=== PATIENT | female | born 1965 | race Caucasian/White ===

== ENCOUNTER 2017-03-22 18:59 | Inpatient (IN) | payer OTHER ==
[~2017-03-22] VITALS: Ht 167.6 cm; Wt 57.6 kg
[~2017-03-22 18:59] MED LIST: SERT20OR PO
[2017-03-22 19:07] VITALS: BP 119/70; PULSE 104; RESP 20; O2SAT 99
[2017-03-22] MEDS ORDERED: 0.9% Sodium Chloride 1,000 ML IV ONE (19:36)
--- NOTE | 2017-03-22 19:58 | ED.REPORT ---
HPI-General Illness Date of Service Mar 22, 2017 ED Provider: Pattie Kidd MD The pt is a 51 y/o female w/ a hx of depression presenting to the ED complaining of a fever onset 5 days ago. The pt is also experiencing diaphoresis , chills, myalgia, dizziness, fatigue, diarrhea, nausea, and a lack of appetite. Her symptoms have caused her to remain in bed for the last 5 days. She feels much better when she is lying down as compared to when she is moving around. She has been drinking increased fluids due to her diaphoresis. 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 The pt has also had a slight non-productive cough which she was experiencing before the symptoms began 5 days ago. Nursing Notes Stated Complaint: FEVER, SWEATS, POSSIBLE HANTA VIRUS Chief Complaint: FLU/Cold Symptoms Nursing Notes Reviewed: Yes Allergies: Coded Allergies: Sulfa (Sulfonamide Antibiotics) (Verified Allergy, Severe, Hives, 01/13/15) Penicillins (Verified Allergy, Intermediate, Rash, 03/22/17) STATES AMOXICILLIN BUT UNSURE Scheduled Sertraline HCl (Sertraline) 20 Mg/1 Ml Oral.conc 100 MG PO QAM Scheduled PRN Trazodone (Trazodone) 50 Mg Tablet 50 MG PO HS PRN PRN Insomnia General Time Seen by MD: 19:34 Chief Complaint Fever Hx Obtained From: Patient Arrived By: Walk-in Sudden in Onset?: Yes Onset Occurred: 5 days ago Symptom Duration: Since onset Recent Healthcare: No recent doctor visit, No recent hospitalization Similar Sx Previous: No Past Medical History Past Medical History Depression Past Surgical History None Smoking History Never Smoker Social History Alcohol Use: "Social" Drug Use: Denies drug use Ambulatory Status Independent Review of Systems Lack of appetite Full Review of Systems Constitutional: Reports: Chills, Fatigue, Fever Respiratory: Reports: Non-productive cough GI: Reports: Diarrhea, Nausea Musculoskeletal: Reports: Myalgia Skin: Reports Diaphoresis Neurologic: Reports: Dizziness Complete sys rev & neg: except as marked. Physical Exam Vital Signs Vital Signs Date Time Temp Pulse Resp B/P Pulse Ox O2 Delivery O2 Flow Rate FiO2 03/22/17 21:03 36.9 87 14 117/67 96 Room Air 03/22/17 19:07 37.1 104 20 119/70 99 Room Air Initial VS: Reviewed General/Constitutional: Awake, Alert Head / Eyes: Normocephalic, No photophobia Slightly flushed face ENT: Atraumatic, Airway patent Neck: Atraumatic, Full range of motion Respiratory / Chest: Breath sounds = bilat, No respiratory distress Fine crackles through lower and middle lung romeo bilaterally Cardiovascular: Heart rate NL, Regular rhythm, Heart sounds NL Abdomen: Atraumatic, Soft, Non-tender Back: Atraumatic, Full range of motion Skin: No rash, Warm, Dry Neurologic: Oriented X3, Speech NL Psychiatric: Affect NL, Mood NL Interpretation & Diagnostics Lab Results Interpretation Result Diagram: 03/22/17195403/22/171954 Test 03/22/17 19:55 03/22/17 21:45 White Blood Count 6.6th/mm3 (3.8-10.1) Red Blood Count 5.11mil/mm3 (3.90-5.20) Hemoglobin 15.7g/dL (12.0-15.6) Hematocrit 43.6% (35.0-46.0) Mean Corpuscular Volume 85.3fL (81-100) Mean Corpuscular Hemoglobin 30.7pg (27.0-35.0) Mean Corpuscular Hemoglobin Concent 36.0% (32.0-37.0) Red Cell Distribution Width 12.4% (12.3-15.4) Platelet Count 50bil/L (150-400) Neutrophils (%) (Auto) 73.1% (40-74) Lymphocytes (%) (Auto) 11.5% (14-46) Monocytes (%) (Auto) 12.8% (4-12) Eosinophils (%) (Auto) 0.9% (0-5) Basophils (%) (Auto) 0.9% (0-3) Sodium Level 127mEq/L (134-144) Potassium Level 4.0mEq/L (3.5-5.2) Chloride Level 91mEq/L (97-108) Carbon Dioxide Level 19mmol/L (18-29) Blood Urea Nitrogen 14mg/dL (6-24) Creatinine 0.52mg/dL (0.57-1.00) Estimat Glomerular Filtration Rate 177mL/min (>59) Glucose Level 131mg/dL (60-99) Lactic Acid Level 0.2mmol/L (0.4-2.0) Calcium Level 8.3mg/dL (8.5-10.1) Total Bilirubin 0.4mg/dL (0.0-1.2) Aspartate Amino Transf (AST/SGOT) 88U/L (0-50) Alanine Aminotransferase (ALT/SGPT) 49U/L (0-32) Alkaline Phosphatase 43U/L (25-150) Lactate Dehydrogenase 490U/L (100-190) Troponin T < 0.010ug/L (0.0-0.011) Total Protein 5.7g/dL (6.4-8.4) Albumin 3.2g/dL (3.4-5.0) Procalcitonin 0.57ng/mL (0.00-0.08) X-Ray Chest Interpretation Chest Xray Interpretation: IMPRESSION: 1. New bilateral reticular interstitial opacities suspicious for atypical infection given the history. However, the differential also includes inflammatory interstitial lung diseases or inhalational exposures among other etiologies. Recommend correlation clinically and if indicated further evaluation may be obtained with a high-resolution CT. Dictated by: Abisai Wong M.D. on 03/22/2017 at 20:04 Approved by: Abisai Wong M.D. 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 She works in extremely remote places multiple areas in [facility] significant exposure to deer mice in dry [place] and other areas where she is certainly exposed to all sorts of bacterial pathogens. About a month ago she was working in a barn with quite a bit of pigeon feces. Despite all attempts at respiratory isolation and respirator use exposure is a significant concern. Not only is her clinical presentation consistent with hantavirus, significant exposure all consistent with this then lab work is also suggestive with thrombocytopenia and elevated lactate dehydrogenase mildly elevated transaminases hyponatremia. Clinically she looks ill she is flushed but awake alert able to speak in full sentences cognitively aware she is minimally tachycardic blood pressure is stable and not decreasing. minimally febrile in response to Tylenol. Phone call to Dr. Wise, agrees with concerns over hantavirus. Does recommend empiric doxycycline as well as ceftriaxone. Respiratory PCR viral testing has been done and is negative for all of our standard testing. Hantavirus titers have been drawn. She will be admitted to the PCU currently stable however concerns for clinical deterioration are significant. Source of Hx: Old records Time of Eval: 21:46 Re-Evaluation/Progress Note: Pt rechecked. Informed pt of need for admission. Pt understands and agrees with plan for admission. All questions addressed. Consultation #1: Referral / Consult Name: Domingo Wise MD Call Returned at: 21:28 Note: Recommends admission and antibiotics Consultation #2: Referral / Consult Name: Carin Underwood DO Consulted With: Hospitalist Call Returned at: 21:37 Risk And Insurance Manager: Will see patient, Agrees with eval, Agrees with plan, Accepts admit Counseled Regarding: Diagnosis, Lab results, Need for admission Discharge & Departure Primary Impression: Interstitial pneumonia Additional Impression: Hyponatremia Disposition: ADMITTED TO HOSPITAL Discharge Condition All VS Reviewed: Yes Condition: Stable Referrals: Butch Townsend MD (PCP) Crit Care Except Billable Proc Time Spent: 30-74 minutes Services Performed: Patient management by me, Time spent at bedside, Reviewing test results, Reviewing imaging, Discussing patient care, Documentation in record, Time with fam/surrogate Scribe Attestation Portions of this note were transcribed by Juan F Baum. I, Dr. Kidd personally performed the history, physical exam and medical decision-making; I reviewed and confirmed the accuracy of the information in the transcribed note. Signed by : Valorie Borrero, 03/22/17 and 2133. copies to: Butch Townsend MD, Shawna L MD Mar 22, 2017 19:58 Juan F Baum Mar 22, 2017 20:31
--- NOTE | 2017-03-22 20:07 | DRSVH ---
PROCEDURE: X-RAY CHEST, TWO VIEWS ([id number]) INDICATIONS: fever, cough TECHNIQUE: 2 views of the chest were acquired. COMPARISON: None. FINDINGS: Surgical changes and devices: None. Lungs and pleura: No pleural effusions or pneumothorax. There are new diffuse bilateral reticular i nterstitial opacities with a basilar predominance. No focal consolidation. Mediastinum: Mediastinal contours are normal. Heart size is normal. Bones and chest wall: No suspicious bony abnormalities. Soft tissues appear unremarkable. IMPRESSION: 1. New bilateral reticular interstitial opacities suspicious for atypical infection given the histor y. However, the differential also includes inflammatory interstitial lung diseases or inhalational e xposures among other etiologies. Recommend correlation clinically and if indicated further evaluatio n may be obtained with a high-resolution CT. Dictated by: Abisai Wong M.D. on 03/22/2017 at 20:04 Approved by: Abisai Wong M.D. on 03/22/2017 at 20:05
[2017-03-22 20:32] LABS: BASOPHILS % (AUTO) 0.9 % (0-3); EOSINOPHILS % (AUTO) 0.9 % (0-5); MONOCYTES % (AUTO) 12.8 % (4-12); Mean Corpuscular Hemoglobin 30.7 pg (27.0-35.0); Mean Corpuscular Volume 85.3 fL (81-100); NEUTROPHILS % (AUTO) 73.1 % (40-74); Platelet Count 50 bil/L (150-400)
[2017-03-22 21:03] VITALS: BP 117/67; PULSE 87; RESP 14; O2SAT 96
[2017-03-22 21:13] LABS: TROPONIN T < 0.010 ug/L (0.0-0.011)
[2017-03-22] MEDS ORDERED: cefTRIAXone Inj 2,000 MG in Dextrose 5% Minibag Plus 50 ML IV ONE (21:30)
[2017-03-22] MEDS ORDERED: SERT20OR6 PO (22:36)
[2017-03-22] MEDS ORDERED: TRAZ-115 PO (22:36)
[2017-03-22] MEDS ORDERED: HYDROcodone-APAP 5-325 mg Tablet PO PRN (22:55)
[2017-03-22] MEDS ORDERED: Polyethylene Glycol (PEG) 17 Gm Powder PO PRN (22:55)
[2017-03-22] MEDS ORDERED: Alum-Mag Hydrox-Simeth 30 mL Suspension PO PRN (22:55)
[2017-03-22] MEDS ORDERED: Ondansetron 2 mg/mL 2 mL Inj IVPUSH PRN (22:55)
--- NOTE | 2017-03-22 23:07 | PCM.HPMED ---
Subjective Date of Service Mar 22, 2017 Primary Provider: Admitting Physician: Carin Underwood DO Primary Care Physician: Dora Starks MD Attending Physician: Carin Underwood DO Admit Status: From the Emergency Department Chief Complaint: Fatigue History of Present Illness: This is a 51-year-old female who presents today with profound fatigue, chills, and loss of appetite. The patient states that she usually lives a very active lifestyle. 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 Approximately 3 weeks ago she remembers cleaning out a large structure with pigeon feces and deer mouse feces and after this developed a cough. Approximately 5 days ago she began to have profound fatigue. She was driving home from [facility] and had to stop her car several times because of the fatigue and due to the fatigue has been laying in bed since the onset. Over the last several days she has developed diffuse muscle aches, chills, nausea without vomiting, and loss of appetite. 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 Today, the patient has a cough that is productive although she cannot describe the sputum. She also has developed loose bowel movements over the last 24 hours that she describes as soft and sometimes liquid and without blood. 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 She denies any shortness of breath , nasal congestion, abdominal pain, hematochezia, melena, headaches, visual changes, dysuria, hematuria, increased urinary frequency.. In the emergency department initial vital signs were temperature 37.1c, pulse 104, respiratory rate 20, blood pressure 119/70, satting at 99% on room air. Initial lab values were WBC 6.6, hemoglobin 15.7, hematocrit 43.6, platelet count of 50. Sodium 127, potassium 4.0, chloride 91, BUN 14, creatinine 0.52, glucose 131, calcium 8.3 with albumin 3.2, AST 88, ALT 49, lactate dehydrogenase 490, troponin less than 0.010. Lactic acid 0.2, pro calcitonin 0.57. She has a negative PCR viral panel. Chest x-ray showed "new bilateral reticular interstitial opacity suspicious for atypical infection given the history. However the differential also includes inflammatory interstitial lung disease or inhalational exposure among other etiologies. Recommend correlation clinically and if indicated further evaluation may be obtained with a high- resolution CT." The emergency room physician contacted Dr. Wise of infectious disease who asked the patient to be placed on doxycycline and ceftriaxone. The patient also received 2 boluses of normal saline while in the ED. Review of Systems: A comprehensive review of systems was conducted with the patient and found to be negative except as above in the History of Present Illness. 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 CT scan of the chest on 04/19/2016 showed no concerning abnormalities Surgical History Left ankle surgery. Family History Mother of peritoneal cancer in 50s. Father of lung cancer in his 50s. He was never a smoker. Sister is healthy. Social History Hx Alcohol Use: No Hx Substance Use: No Smoking Status: Never Smoker Additional Information Patient has travel history significant for [facility], [place], and [place] in 2013. She has lived in multiple states throughout her life including [place], [place], [place]. 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 She has no known tortuous exposure. Exam Vital Signs Vital Sign - Last Date Time Temp Pulse Resp B/P Pulse Ox O2 Delivery O2 Flow Rate FiO2 03/22/17 22:09 36.9 72 16 127/70 98 Room Air Exam General: No acute distress, well-developed, well-nourished, appropriately interactive HEENT: Normocephalic, atraumatic. External ears without defect. Pupils equal, round, and reactive to light and accommodation. Anicteric sclerae, moist conjunctivae, and no lid lag. Oropharynx free of erythema and cobble stoning with dry mucosa. Neck: Supple with full range of motion. No jugular venous distension. No bruits. Lymphadenopathy in left submandibular region. No thyromegaly. Cardiovascular: Regular rate and rhythm with no murmurs, rubs, or gallops appreciated Pulmonary: Crackles present at base of lungs bilaterally, no wheezes or rhonchi. Normal respiratory effort with no use of accessory muscles. Abdomen: Bowel tones present. Soft, nontender, nondistended. No hepatosplenomegaly or masses appreciated. Extremities: No clubbing, cyanosis, edema, or lymphadenopathy appreciated. Skin: Normal temperature, turgor, and texture; no rash, ulcers, or subcutaneous nodules appreciated. Neurological: Cranial nerves grossly intact. Normal muscle strength, tone, and bulk. Reflexes, coordination, and sensory function within normal limits. No known gait impairment. Psychiatric: Normal mood and affect. Alert and oriented to person, place, and time. Lab and Diagnostics Result Diagram: 03/22/17195403/22/171954 X-Rays, CTs and MRIs Chest x-ray on 03/22/2017: IMPRESSION: 1. New bilateral reticular interstitial opacities suspicious for atypical infection given the history. However, the differential also includes inflammatory interstitial lung diseases or inhalational exposures among other etiologies. Recommend correlation clinically and if indicated further evaluation may be obtained with a high-resolution CT. Dictated by: Abisai Wong M.D. on 03/22/2017 at 20:04 Assessment & Plan This is a usually very active and healthy 51-year-old female who presents with chills, nausea, diarrhea, and profound fatigue of 5 days duration. 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 She has a negative PCR viral panel, WBC of 6.6 with a relatively normal differential, thrombocytopenia, hyponatremia, as well as elevated transaminases and lactate dehydrogenase. Her pro calcitonin was 0.57. Chest x-ray showed new bilateral reticular interstitial opacities suspicious for atypical infection. I suspect this is of infectious origin. The differential is broad and includes gastroenteritis, atypical pneumonia, inhalational exposure, inflammatory interstitial lung disease, malignancy. The patient herself is worried about Hanta virus and this is not unreasonable due to exposures. Hanta virus antibodies are pending. Bilateral interstitial opacities, present on admission, ongoing: -Chest x-ray: bilateral reticular interstitial opacities. Procalcitonin .57. Lung exam significant for crackles. Exposure to multiple types of animal feces. -This likely represents atypical pneumonia. -PCR viral panel negative. -Hanta virus antibodies pending. -Blood cultures, sputum cultures, legionella ag, strep pneumo ag, cryptococcal ag, HIV -Dr. Wise of infectious disease was consulted over the phone by the ED physician and asked about antibiotic choices and he recommended doxycycline and ceftriaxone based on history he received. -Continue Ceftriaxone and doxycycline. Fatigue, present on admission, ongoing: -Likely secondary to infectious cause such as atypical pneumonia. -NS at 60 ml/hr. Acute diarrhea, present on admission, ongoing: -Several episodes of diarrhea over last 24 hours without blood. Recently was drinking out of well with what appeared to be contaminated water with red residue. -PCR stool panel pending. Thrombocytosis, present on admission, ongoing: -Platelets on admission 50. -Likely secondary to acute viral or bacterial infection. -Differential includes neoplasm, chronic infection. Hypovolemic hyponatremia, present on admission, ongoing: -Sodium 127 on admit. Decreased fluid intake due to nausea. -NS at 60ml/hr. Elevated glucose, present on admission, ongoing: -On admit glucose is 131. -A1c ordered. Elevated transaminases, present on admission, ongoing: AST 88, ALT 49. Lactate dehydrogenase on admit 490. Differential includes: infectious including hepatitis, toxin, alcoholism (she denies drinking), thyroid disorders, malignancy. -Consider ultrasound of abdomen in morning. -Hepatitis panel pending. SCD"s for DVT prophylaxis. Patient is admitted under inpatient status with expected length of stay greater than 2 midnights due to severity of presenting symptoms, risk of adverse event, and complexity of treatment plan. Pain Evaluation: Adequate Pain Control Resuscitation Status: CPR: Attempt Resuscitation Attending Statement The patient was seen and examined together with house staff on 03/23/2017 and I agree with the history, exam and plan as outlined in the note above. Cecil Zavaleta DO Mar 22, 2017 23:07 Carin Underwood DO Mar 23, 2017 04:58
[2017-03-22 23:28] VITALS: BP 122/74; PULSE 76; RESP 16; O2SAT 96
[2017-03-23] VITALS (8 sets, daily range): BP systolic 103–118; BP diastolic 55–68; PULSE 73–110; RESP 15–20; O2SAT 90–100
[2017-03-23] MEDS: 0.9% Sodium Chloride 1,000 ML IV SCH ×2 (00:38→16:49)
[2017-03-23 01:00] LABS: APPEARANCE,URINE CLEAR (CLEAR,HAZY); COLOR,URINE YELLOW (YELLOW)
[2017-03-23 01:01] LABS: OCCULT BLOOD,URINE TRACE (NEGATIVE); UROBILINOGEN,URINE NORMAL (NORMAL)
--- NOTE | 2017-03-23 01:43 | NUR ---
Admit Patient admitted to [facility] 2005 at 2325. Admit documentation and med rec completed. Patient expressed anxiety about going to sleep; worries that she may have a breathing problem and not wake up. Reassured patient that she would be monitored and provided patient with a continuous pulse ox for peace of mind. Patient expressed satisfaction with this arrangement and is going to sleep.
[2017-03-23 02:50] LABS: BASOPHILS % (AUTO) 0.8 % (0-3); EOSINOPHILS % (AUTO) 1.3 % (0-5); MONOCYTES % (AUTO) 12.4 % (4-12); Mean Corpuscular Hemoglobin 30.7 pg (27.0-35.0); Mean Corpuscular Volume 86.1 fL (81-100); NEUTROPHILS % (AUTO) 68.8 % (40-74); Platelet Count 41 bil/L (150-400)
[2017-03-23 03:33] LABS: ERYTHROCYTE SEDIMENTATION RATE 2 mm/hr (0-40)
--- NOTE | 2017-03-23 06:10 | NUR ---
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 Patient was offered medication for nausea but refused, stating that she would rather sip water. Patient states that if she has any further episodes of emesis she will consider medication.
--- NOTE | 2017-03-23 09:08 | PCM.PNMED ---
Subjective Date of Service Mar 23, 2017 Subjective She is doing better today. She has a dry cough. Minimal dyspnea. Some dyspnea exertion. Her fatigue is much better after fluid repletion. No nausea , fevers, chills, or rolling myalgias. No diarrhea. No organomegaly events Exam Vital Signs Vital Sign - Last Date Time Temp Pulse Resp B/P Pulse Ox O2 Delivery O2 Flow Rate FiO2 03/23/17 07:55 37.2 110 20 103/62 90 Room Air Intake and Output 03/22/17 03/22/17 03/23/17 Cumulative From/Thru 15:00 23:00 07:00 03/22/17 19:07 - 03/23/17 04:54 Intake Total 1000 ml 0 ml 1000 ml Output Total 700 ml 700 ml Balance 1000 ml -700 ml 300 ml Intake Oral 0 ml 0 ml IV Total 1000 ml 1000 ml Output Urine Total 700 ml 700 ml # Bowel Movements 0 0 Exam Alert and oriented -3, no distress. Fluent speech Anicteric sclera. Lungs are clear with normal rate and effort, diffuse mild rales. Heart is regular without murmur gallop or rub Abdomen soft nontender, flat Extremities are free of edema. Skin is free of rash or lesions., No petechiae IVs and Medications Medications Reviewed: Medications were reviewed in detail Lab and Diagnostics Result Diagram: 03/23/1722403/23/17224 X-Rays, CTs and MRIs Chest x-ray on 03/22/2017: IMPRESSION: 1. New bilateral reticular interstitial opacities suspicious for atypical infection given the history. However, the differential also includes inflammatory interstitial lung diseases or inhalational exposures among other etiologies. Recommend correlation clinically and if indicated further evaluation may be obtained with a high-resolution CT. Dictated by: Abisai Wong M.D. on 03/22/2017 at 20:04 Assessment & Plan This is a usually very active and healthy 51-year-old female who presents with chills, nausea, diarrhea, and profound fatigue of 5 days duration. 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 She has a negative PCR viral panel, WBC of 6.6 with a relatively normal differential, thrombocytopenia, hyponatremia, as well as elevated transaminases and lactate dehydrogenase. Her pro calcitonin was 0.57. Chest x-ray showed new bilateral reticular interstitial opacities suspicious for atypical infection. I suspect this is of infectious origin. The differential is broad and includes gastroenteritis, atypical pneumonia, inhalational exposure, inflammatory interstitial lung disease, malignancy. The patient herself is worried about Hanta virus and this is not unreasonable due to exposures. Hanta virus antibodies are pending. Pneumonia, improving -Chest x-ray: bilateral reticular interstitial opacities. Procalcitonin .57. Lung exam significant for crackles. Exposure to multiple types of animal feces. -This likely represents atypical pneumonia. -PCR viral panel negative. -Hanta virus antibodies pending. -Blood cultures, sputum cultures, legionella ag, strep pneumo ag, cryptococcal ag, HIV -Dr. Wise of infectious disease was consulted over the phone by the ED physician and asked about antibiotic choices and he recommended doxycycline and ceftriaxone based on history he received. -Continue Ceftriaxone and doxycycline. The patient has a differential that includes tickborne disease (HGA). She has no evidence of shock or profound hypoxia. No evidence of bleeding. This point we will continue her current treatment. Serologies are sent and pending. Volume depletion, present on admission, improving: -Likely secondary to infectious cause such as atypical pneumonia. -NS at 60 ml/hr. this will be continued Acute diarrhea, present on admission, resolved: -Several episodes of diarrhea over last 24 hours without blood. Recently was drinking out of well with what appeared to be contaminated water with red residue. -PCR stool panel pending. Thrombocytopenia, present on admission, ongoing: -Platelets on admission 50. -Likely secondary to acute viral or bacterial infection. -Differential includes neoplasm, chronic infection, will follow clinically.. Hypovolemic hyponatremia, present on admission, ongoin improving -Sodium 127 on admit. Decreased fluid intake due to nausea. -NS at 60ml/hr. Elevated glucose, present on admission, ongoing: -On admit glucose is 131. -A1c ordered. Elevated transaminases, present on admission, ongoing: Very likely related to her primary infection. AST 88, ALT 49. Lactate dehydrogenase on admit 490. Differential includes: infectious including hepatitis, toxin, alcoholism (she denies drinking), thyroid disorders, malignancy. -Consider ultrasound of abdomen in morning. -Hepatitis panel pending. SCD"s for DVT prophylaxis. Patient is admitted under inpatient status with expected length of stay greater than 2 midnights due to severity of presenting symptoms, risk of adverse event, and complexity of treatment plan. Resuscitation Status: CPR: Attempt Resuscitation Hosea Brady MD Mar 23, 2017 09:08
--- NOTE | 2017-03-23 13:17 | CONS ---
[address] [address] CONSULTATION REPORT PATIENT: PATITO ANDERSON : 1965 MR#: [id number] ADMIT: 03/22/2017 JOB ID: [id number] DATE OF SERVICE: 03/23/2017 REASON FOR CONSULTATION: Fever, hypoxemia, and abnormal chest x-ray. REQUESTING CLINICIAN: Dr. [facility]. HISTORY OF ILLNESS: The patient is a normally healthy, active, 51-year-old white female, never smoker. She presented to [facility] Department on the evening of March 22, 2017, with an approximate 5-day history of fevers, rigors, chills, drenching sweats, and lethargy. Her chest x-ray was found to be abnormal and she was mildly hypoxemic. She was admitted to the hospital service and Pulmonary consultation is now requested. 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 She routinely encounters large amounts of dust and animal and rodent droppings. She and other members of the team are even supplied with a portable positive powered respirator for respiratory protection given the recognition of their significant exposures at work. 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 She sometimes is involved with removing materials that involve zeolite and asbestos. She observed large amounts of rodent waste droppings in the buildings where she was working. She developed a slight nonproductive cough and "cold" symptoms for approximately one week at the end of her time in [facility]. She returned to her home in the [place], but by that time was very fatigued on Saturday or Saturday of this week. She has been essentially bedridden since that time, experiencing rigors, chills, and drenching sweats. She has had very poor appetite. She had significant generalized arthralgias and myalgias. She had a single episode of vomiting. She denied diarrhea, abdominal pain, or jaundice. She had very poor p.o. intake. Ultimately, a neighbor convinced her to be brought to the emergency department where she was evaluated and then admitted. PAST MEDICAL HISTORY: 1. Osteoarthritis. 2. Anxiety. 3. Insomnia. OUTPATIENT MEDICATIONS: Sertraline and trazodone. DRUG ALLERGIES: 1. SULFONAMIDE causes a papular rash. 2. PENICILLIN is associated with symptoms she cannot recall. SOCIAL HISTORY: She is single, employed, a nonsmoker. Denies use of recreational drugs. FAMILY HISTORY: Father of widely metastatic melanoma. Mother of an uncharacterized perineal tumor. She has no children. REVIEW OF SYSTEMS: As above. She had mild headache but none now. She had some slight photophobia earlier in this illness but this has resolved. She denies any current ear pain, change in vision, difficulty swallowing, change in auditory acuity, lymphadenopathy, rash, or extremity swelling, PND, orthopnea, previous history of cardiac disease, jaundice, history of hepatitis or any history of kidney disease. Ten system review completed and only positive as noted. PHYSICAL EXAMINATION: This is a well-developed, well-nourished woman who appears slightly apprehensive but otherwise comfortable. She speaks in full sentences. She is currently afebrile and her O2 saturation at rest on room air ranges from 91% to 93%. HEENT exam: Head is normocephalic and atraumatic. Conjunctivae not injected. Sclerae anicteric. Gaze is conjugate. Pupils are equal at 5 mm. The oropharynx shows normal mucosa without any ulcerations or exudate. Tonsils are atrophic. The neck shows a midline trachea. Neck veins are flat. There is no mass, adenopathy or crepitus in the neck and the thyroid is not palpable. Lungs are clear to percussion with normal diaphragmatic excursion. On auscultation, she has slightly decreased air movement but no wheeze, rale or rhonchi are heard. Cardiac exam shows a regularly regular rhythm with a normal S1 and an accentuated P2 component of her 2nd heart sound. There is no gallop or murmur. Her abdomen is soft. Bowel sounds are present. There is no organomegaly, mass or bruits. Extremities: Nails are normal. No synovitis. Pulses are 2+. Lower extremities free of edema. Skin: No rash, petechiae, purpura. Lymphatic: No axillary, supraclavicular or cervical lymphadenopathy. DATABASE: Per the electronic medical record. Her chest x-ray shows some hyperinflation, normal cardiac mediastinal silhouette and diffuse reticular infiltrate involving all lung zones. Her CBC shows a hemoglobin of 14.8, hematocrit of 41.5, WBC of 6.3 with 69% neutrophils, 15% lymphocytes, 12.4 monocytes and 1.3% eosinophils. She had only 41,000 platelets. Chemistries show a sodium 132, potassium 3.8, chloride of 98, total CO2 of 22, BUN of 14, creatinine 0.5 and random glucose of 135. AST is mildly elevated at 72, and ALT is 42, alkaline phosphatase is normal. LDH is slightly elevated at 499. Procalcitonin level elevated at 0.57. IMPRESSION: Fever, hypoxemia, and pulmonary infiltrates. Her recent exposures to rodent droppings raises several possibilities. She may also have had some tick exposure given the environment she has been living in recently. The differential here is quite broad. There has already been some expressed concern about hantivirus but while she has an elevated LDH and thrombocytopenia, she has no immunoblasts seen and her clinical syndrome actually appears quite mild at this time, although she may still be in the prodromal phase. More likely than hantavirus, I am concerned about anaplasmosis or ehrlichiosis which are also tick-borne illnesses associated with deer mice. Rickettsial diseases such as Coxiella are a consideration as are spirochetal diseases such as relapsing fever. The absence of rash makes RMSF unlikely She was started empirically already on doxycycline and I would continue this for 10 days, or least three or four days after defervescence. I believe Hantavirus serologies have already been sent and to this I would add serology for anaplasmosis and Ehrlichia. RECOMMEND: 1. Continue doxycycline 100 mg IV q.12 h. 2. Serology for anaplasmosis, Ehrlichia, and possibly Coxiella 3. Peripheral smear examination for the presence of immunoblasts We will continue to follow with you but she can likely be discharged within the next 48 hours if she defervesces and has normalization of lab values with improvement in her mild hypoxemia. MAXID
[2017-03-23] MEDS: cefTRIAXone Inj 2,000 MG in Dextrose 5% Minibag Plus 50 ML IV SCH (16:52)
[2017-03-23] MEDS: Doxycycline Inj 100 MG in Dextrose 5% Minibag Plus 100 ML IV SCH (20:10)
[2017-03-24] VITALS (7 sets, daily range): BP systolic 105–108; BP diastolic 63–74; PULSE 96–109; RESP 16–20; O2SAT 91–94
--- NOTE | 2017-03-24 00:22 | NUR ---
Respiratory At midnight vitals check patient found to have SpO2 in the low 80s on room air. Prior checks had all been in the low to mid 90s on room air. Oxygen applied via oxymask titrated to 4L; patient SpO2 91-92%. FYI page to hospitalist. Continue to monitor.
[2017-03-24 02:58] LABS: Mean Corpuscular Hemoglobin 30.8 pg (27.0-35.0)
[2017-03-24] MEDS: Doxycycline Inj 100 MG in Dextrose 5% Minibag Plus 100 ML IV SCH ×2 (07:50→20:36)
--- NOTE | 2017-03-24 08:20 | PCM.PNMED ---
Subjective Date of Service Mar 24, 2017 Subjective Placed on oxygen over noc No new complaints. Had light dinner. Denies chills, rigors, sweats. Speaking in full sentences. Cough nonproductive Exam Vital Signs Vital Sign - Last Date Time Temp Pulse Resp B/P Pulse Ox O2 Delivery O2 Flow Rate FiO2 03/24/17 07:34 37.5 98 20 105/66 92 OxyMask 5.00 Intake and Output 03/23/17 03/23/17 03/24/17 Cumulative From/Thru 15:00 23:00 07:00 03/22/17 19:07 - 03/24/17 06:38 Intake Total 1300 ml 1503 ml 3803 ml Output Total 1200 ml 1900 ml Balance 100 ml 1503 ml 1903 ml Intake Oral 1300 ml 1300 ml IV Total 1503 ml 2503 ml Output Urine Total 1200 ml 1900 ml # Bowel Movements 0 Exam Tanned WDWN woman in NAD Afeb, SpO2 91-93% 5L by oxymask Lungs Good air movement, faint rales, NO wheezes, bronchial breath sounds CV RRR, no m/g/r Abd soft, normal BTs Ext no edema Lab and Diagnostics Result Diagram: 03/24/175 03/23/17 0225 X-Rays, CTs and MRIs Chest x-ray on 03/22/2017: IMPRESSION: 1. New bilateral reticular interstitial opacities suspicious for atypical infection given the history. However, the differential also includes inflammatory interstitial lung diseases or inhalational exposures among other etiologies. Recommend correlation clinically and if indicated further evaluation may be obtained with a high-resolution CT. Dictated by: Abisai Wong M.D. on 03/22/2017 at 20:04 Assessment & Plan Atypical pneumonia The development of hypoxemia requiring oxygen is concerning. She remains afebrile and there were no immunoblasts or immature forms seen on her peripheral smear and her platelet count is recovering. The differential remains broad and includes hantavirus, tularemia pneumonia, Q fever, anaplasmosis/erhrlichia, legionella ( although her urine antigen is neg) , mycoplasma, and more common respiratory viruses REC CXR today Nasal secretions for respiratory virus PCR Continue IV doxy Wean O2 as tolerates Serial CBC Resuscitation Status: CPR: Attempt Resuscitation Tre Sabillon MD Mar 24, 2017 08:20
--- NOTE | 2017-03-24 08:32 | NUR ---
Social Work Note: Screen Note Data& Assessment: EMR reviewed. Sonia Monge is a 51 year old female admitted on 03/22/2017 for insterstial pneumonia. Pt has [facility] and sees Dora Starks [facility] for primary care. Pt lives in [place] and is independent at baseline. Pt is currently requiring 4L of oxygen and IV abx. SW to continue to follow for MD orders and needs as pt medically progresses. SW to continue to follow. Plan: Anticipated discharge home when medically ready. SW to continue to follow for MD orders and needs as pt medically progresses. SW to continue to follow. AMINTA Padron
--- NOTE | 2017-03-24 09:36 | DRSVH ---
PROCEDURE: X-RAY CHEST ONE VIEW, PORTABLE ([id number]) INDICATIONS: pneumonia TECHNIQUE: One view of the chest was acquired. COMPARISON: [facility], CR, XR CHEST 2V AP/PA AND LAT, 03/22/2016, 11:05 AM. [facility], CR, CHEST 2VW, 01/03/2015, 15:25. [facility], CR, XR CHEST 2VW, 03/22/2017, 19:54. FINDINGS: Surgical changes and devices: None. Lungs and pleura: There is a new small left pleural effusion with left retrocardiac consolidation. There are reticular interstitial opacities demonstrated suggesting mild pulmonary edema versus chroni c changes. Mediastinum: Mediastinal contours appear normal. Heart size is normal. Bones and chest wall: No suspicious bony lesions. Overlying soft tissues appear unremarkable. IMPRESSION: 1. Left retrocardiac lower lobe consolidation consistent with history of pneumonia. There are also increased medial right infrahilar opacities compatible with developing consolidation or atelectasis. 2. Small left pleural effusion. 3. Increased bilateral reticular interstitial opacities suggesting mild pulmonary edema. Dictated by: Abisai Wong M.D. on 03/24/2017 at 9:26 Approved by: Abisai Wong M.D. on 03/24/2017 at 9:28
[2017-03-24] MEDS ORDERED: Furosemide 10 mg/mL 2 mL Inj IVPUSH ONE (10:40)
[2017-03-24] MEDS: 0.9% Sodium Chloride 1,000 ML IV SCH (11:27)
[2017-03-24 12:36] LABS: BASOPHILS % (AUTO) 0 % (0-3); EOSINOPHILS % (AUTO) 1 % (0-5); MONOCYTES % (AUTO) 14 % (4-12); NEUTROPHILS % (AUTO) 39 % (40-74)
[2017-03-24 13:09] LABS: Cryptococcal Ag Negative (Negative)
--- NOTE | 2017-03-24 14:22 | PCM.PNMED ---
Subjective Date of Service Mar 24, 2017 Subjective Patient is feeling fatigued today. No cough, fevers or chills. She did require more oxygen this morning. She is now on 4 L. She does note dyspnea with exertion but no dyspnea at rest while on oxygen. No nausea. No myalgias. No abdominal pain or diarrhea. No overnight events Exam Vital Signs Vital Sign - Last Date Time Temp Pulse Resp B/P Pulse Ox O2 Delivery O2 Flow Rate FiO2 03/24/17 11:26 36.9 100 16 108/74 91 OxyMask 5.00 Intake and Output 03/23/17 03/23/17 03/24/17 Cumulative From/Thru 15:00 23:00 07:00 03/22/17 19:07 - 03/24/17 06:38 Intake Total 1300 ml 1503 ml 3803 ml Output Total 1200 ml 1900 ml Balance 100 ml 1503 ml 1903 ml Intake Oral 1300 ml 1300 ml IV Total 1503 ml 2503 ml Output Urine Total 1200 ml 1900 ml # Bowel Movements 0 Exam Alert and oriented -3, no distress. Fluent speech. She is on oxygen and breathing comfortably and not tachypneic. Anicteric sclera. Lungs are clear with normal rate and effort Heart is regular without murmur gallop or rub Abdomen soft nontender, flat Extremities are free of edema. Skin is free of rash or lesions. IVs and Medications Medications Reviewed: Medications were reviewed in detail Lab and Diagnostics Result Diagram: 03/24/1722403/23/17224 X-Rays, CTs and MRIs Chest x-ray on 03/22/2017: IMPRESSION: 1. New bilateral reticular interstitial opacities suspicious for atypical infection given the history. However, the differential also includes inflammatory interstitial lung diseases or inhalational exposures among other etiologies. Recommend correlation clinically and if indicated further evaluation may be obtained with a high-resolution CT. Dictated by: Abisai Wong M.D. on 03/22/2017 at 20:04 Assessment & Plan #. Atypical Pneumonia, table. -Chest x-ray: bilateral reticular interstitial opacities. Procalcitonin .57. Lung exam significant for crackles. Exposure to multiple types of animal feces. -This likely represents atypical pneumonia. -PCR viral panel negative. -Hanta virus antibodies pending. -Blood cultures, sputum cultures, legionella ag, strep pneumo ag, cryptococcal ag, HIV -Dr. Wise of infectious disease was consulted over the phone by the ED physician and asked about antibiotic choices and he recommended doxycycline and ceftriaxone based on history he received. -Continue Ceftriaxone and IV doxycycline. Did consult Dr. Sabillon of pulmonary who is helping greatly with the case and management. The patient has a differential that includes tickborne disease (HGA). She has no evidence of shock or profound hypoxia. No evidence of bleeding. This point we will continue her current treatment. Serologies are sent and pending. #. Acute respiratory failure with hypoxia, new. We will support her supplemental oxygen as needed. She is ventilating without difficulty. #. Volume depletion, present on admission, resolved. -Likely secondary to infectious cause such as atypical pneumonia. -NS at 60 ml/hr. this will be discontinued #. Acute diarrhea, present on admission, resolved: -Several episodes of diarrhea over last 24 hours without blood. Recently was drinking out of well with what appeared to be contaminated water with red residue. -PCR stool panel pending. #. Thrombocytopenia, present on admission, improving.: -Platelets on admission 50. -Likely secondary to acute viral or bacterial infection. -Differential includes neoplasm, chronic infection, will follow clinically.. #. Hypovolemic hyponatremia, present on admission, and resolving -Sodium 127 on admit. Decreased fluid intake due to nausea. -NS at 60ml/hr. #. Elevated glucose, present on admission, improving. -On admit glucose is 131. -A1c ordered. #. Elevated transaminases, present on admission, ongoing and stable. Very likely related to her primary infection. AST 88, ALT 49. Lactate dehydrogenase on admit 490. Differential includes: infectious including hepatitis, toxin, alcoholism (she denies drinking), thyroid disorders, malignancy. -Consider ultrasound of abdomen in morning. -Hepatitis panel pending. SCD"s for DVT prophylaxis. Patient is admitted under inpatient status with expected length of stay greater than 2 midnights due to severity of presenting symptoms, risk of adverse event, and complexity of treatment plan. Resuscitation Status: CPR: Attempt Resuscitation Discharge in 2-3 days depending on degree of oxygen requirement with her hypoxia. Resuscitation Status: CPR: Attempt Resuscitation Hosea Brady MD Mar 24, 2017 14:22
[2017-03-24] MEDS: cefTRIAXone Inj 2,000 MG in Dextrose 5% Minibag Plus 50 ML IV SCH (16:50)
[2017-03-25] VITALS (9 sets, daily range): BP systolic 99–124; BP diastolic 62–74; PULSE 91–106; RESP 16–20; O2SAT 90–97
[2017-03-25 02:55] LABS: BASOPHILS % (AUTO) 3.4 % (0-3); EOSINOPHILS % (AUTO) 0.6 % (0-5); MONOCYTES % (AUTO) 14.4 % (4-12); Mean Corpuscular Hemoglobin 30.5 pg (27.0-35.0); Mean Corpuscular Volume 86.3 fL (81-100); NEUTROPHILS % (AUTO) 56.5 % (40-74)
[2017-03-25 03:19] LABS: Platelet Count 89 bil/L (150-400)
--- NOTE | 2017-03-25 06:07 | NUR ---
Anxiety/Respiratory Patient expressing anxiety that she is not getting better. She is worried that her condition is worsening and she wonders if she will be ok. Acknowledged patient's concerns and listened while she described her feelings. Reminded patient that she has a lot of diagnostic lab work pending that might still provide answers. Patient stated that she felt better after talking. Continues to be on 6L oxymask overnight, feeling unable to lie on her left side or bend over at the waist "or my chest will burst." Lungs remain clear to auscultation, though slightly decreased.
[2017-03-25] MEDS: Doxycycline Inj 100 MG in Dextrose 5% Minibag Plus 100 ML IV SCH ×2 (08:52→20:27)
[2017-03-25 10:09] LABS: Hepatitis A Antibody IgM Negative (Negative); Hepatitis B Core Antibody IgM Negative (Negative)
--- NOTE | 2017-03-25 10:36 | DRSVH ---
PROCEDURE: X-RAY CHEST ONE VIEW, PORTABLE ([id number]) INDICATIONS: pneumonia TECHNIQUE: One view of the chest was acquired. COMPARISON: [facility], CR, XR CHEST 1VW (PORTABLE), 03/24/2017, 8:23. FINDINGS: Surgical changes and devices: None. Lungs and pleura: Small pleural effusions are present and persistent bibasilar airspace opacities lef t greater than right. No pneumothorax. Mediastinum: Mediastinal contours appear normal. Heart size is normal. Bones and chest wall: No suspicious bony lesions. Overlying soft tissues appear unremarkable. IMPRESSION: Bilateral pleural effusions and bibasilar consolidation suggesting pneumonia. Dictated by: Jethro ENGLE Interpreted: Sophia Fatima MD on 03/25/2017 at 8:18 Approved by: Sophia Fatima M.D. on 03/25/2017 at 10:34
--- NOTE | 2017-03-25 10:52 | PROG NOTE ---
[address] [address] PROGRESS NOTE PATIENT: PATITO ANDERSON : 1965 MR#: [id number] ADMIT: 03/22/2017 JOB ID: [id number] DATE: 03/25/2017 REASON FOR CONSULTATION: Bilateral pulmonary infiltrates in a patient with extensive wilderness exposure. I thank Dr. Pattie Kidd for this timely consult. 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 As part of her job, she routinely wears a space suit type device to avoid the risk of Hantavirus, and she and her work crew are constantly on guard against Hantavirus using even chlorine sprays as well as their space suite type devices to minimize the risk. Unfortunately, some nights they still sleep out in the open under the awnings of these antique structures and do have exposure to rodent feces even in the evening when they are camped at their place of work. The patient reports that she was just leaving a field site near [facility] in the [facility] last Saturday, which would be March 19. While she was trying to drive home from the [facility] area back to her home in [facility], she developed some profound fevers, chills, drenching sweats and profound weakness with myalgias and arthralgias. Initially, she was not really short of breath but over the next three days from the onset of symptoms until her admission on March 22, she noticed the gradual onset of shortness of breath and dry cough which steadily progressed. The fevers, chills, sweats actually seemed to diminish somewhat even as the shortness of breath increased. In association with these symptoms, she had some watery and somewhat itchy eyes as well as perhaps some pain with lateral motion of the eyes bilaterally, with some degree of minimal headache and no appreciable sore throat was noted. The cough was strictly nonproductive. She did have nausea with anorexia throughout this episode and one episode of vomiting only. No diarrhea and, in fact, she has been somewhat constipated. No genitourinary symptoms. No skin rash. She is not aware of any tick or mosquito bites. As noted, she has extensive exposure though to rodent feces and rodents themselves. No travel outside of [facility] for more than one year. She normally resides in [place], [place], where she lives alone, and then travels as needed to work [place] a [place]an [place]. PAST MEDICAL HISTORY: 1. History of depression. 2. History of insomnia. 3. History of chronic cough interestingly, which was worked up by CT scan last year and was said to be normal. SOCIAL HISTORY: The patient is a lifelong nonsmoker, nondrinker. She traveled to [facility] in 2013. She has also lived in [place] and [place], but has not been in those areas in recent years. She has no contact with small children. FAMILY HISTORY: Negative for TB in 1st or 2nd-degree relatives. REVIEW OF SYSTEMS: Was done. The patient states this illness has not been characterized by much in the way of headache, though she thinks she had a mild one last week about the onset of this illness, but it has been minor. She has had pain with lateral vision of her eyes as well as persistent watery eyes since the onset of this illness. No sneezing or coryza as been noted. No significant sore throat or odynophagia. No stiff neck or swollen lymph nodes have been noted. She has had a dry cough and increasing shortness of breath which actually is much worse than when she first came in the hospital three days ago. She does have chest pain now, though she did not when she came in. She notes this chest pain is most notable when she leans forward in bed and gets better when she lays down. She has had nausea with anorexia and one episode of vomiting. No diarrhea. No dysuria, urgency, or frequency. No swollen joints. No skin rash and no neurologic complaints. Remainder of the review of systems is negative. PHYSICAL EXAMINATION: Reveals a woman who has been afebrile since admission here. At midnight, she was 37.7, so not quite a fever. Right now, 36.8, pulse 95, respiratory rate 20, blood pressure 108/72. Saturating fairly well at 94% on 3 L. the patient is awake, alert and anxious. Head without evidence of trauma. Sinuses nontender. Eyes without conjunctivitis or scleral icterus. Nose is normal. Oral cavity normal with excellent dentition in good repair. No pharyngitis or thrush. Neck is supple and without adenopathy. Lungs are notable for scattered dry crackles bilaterally, perhaps left more than right, and primarily heard at the bases. Cardiac tones regular rate and rhythm without murmurs, no rub is noted. The abdomen is soft and nontender without organomegaly. There is no inguinal adenopathy. No synovitis or swelling of the joints. No skin rash is noted. Neurologically, she is entirely intact. LABORATORIES: Include a white count when she came in, 6600. The initial diff on that white count was basically normal. It is worth noting that on the , though, her white count had 36% bands which is quite striking. Platelet count has been low since admission, 50,000 when she came in, fell to 41,000 before rebound today to 89,000. White blood count today is 12,300, with 89,000 platelets and a normal diff today. Creatinine 0.62. LFTs normal. Procalcitonin 0.37. It was 0.57 when she came in. Urinalysis without white cells or red cells. Cocci antibody, crypto antigen pending. Tularemia antibody is pending. Hantavirus antibodies, pending. Urine histo, pending. HIV is negative. Urine Legionella and pneumococcal antigens are negative. Blood cultures negative, and respiratory viral PCR negative. IMAGING: Includes two chest x-rays, one from admission that shows bilateral interstitial opacities. A followup done today shows bilateral interstitial opacities which are actually somewhat worse than they were two days ago. IMPRESSION: This is a fascinating case of a woman who works as a kiran deep in the [employer], working on [employer] structures which are inevitably filled with mouse droppings. This places the patient at tremendous risk for Hantavirus, but she and her colleagues try and mitigate this by spraying of chlorine bleach as well as wearing respiratory protection while they work on the structures. They, nonetheless, are exposed when they camp nearby the structures, sometimes, in fact, even in the structures. The possibilities for unusual pneumonias here are large and include obviously Hantavirus. Other possibilities might include leptospirosis, tularemia plague, Babesia, rickettsial disorders or anaplasma. Other unusual causes like Hinsdale virus or some of the other or relapsing fever seems less likely. When I was first contacted about this patient John night from the ED, I agreed with probable Hantavirus, but strongly recommended doxycycline be initiated. Ceftriaxone was also started and she is now starting her fourth day of doxycycline and ceftriaxone. Despite these antibiotics, she has worsened, which I think makes some of the unusual choices like tularemia plague, Rickettsia and anaplasma less likely, even as Hantavirus moves up the possibility chart. Hantavirus can produce a dramatic left shift which she had yesterday, as well as thrombocytopenia, and an LDH which I failed to mention, but it is almost 500. The differential, of course, includes noninfectious interstitial lung diseases as well, and I have discussed this case in detail with Dr. Barrios of Pulmonary this morning. RECOMMENDATIONS: 1. I would continue with the doxycycline and ceftriaxone that are probably likely near the end of the course of both of these antibiotics as she has not improved and even atypical bacteria which might respond to doxycycline are becoming less likely by the day. 2. We await the Hanta serologies. I have called the laboratory to try and expedite these as apparently they are in the laboratory now in [facility] and, I am hopeful we can get the results quicker. 3. If she does have Hantavirus, of course, will stop her antibiotics. Note that if she has Hanta, there is no evidence of anything that really seems to help and, in fact, both steroids and ribavirin do not help. 4. If she does not hose turner to have Hantavirus or any apparent antibiotic responsive bacteria, then she may have an inflammatory interstitial pneumonitis which is noninfectious such as HammanRich syndrome, or acute interstitial pneumonitis. 5. Will continue to follow this fascinating case with you. 6. An echocardiogram should be done as the patient does have chest pain, worse when she is leaning forward. 7. I have also ordered thick and thin smears to look for the WA-1 strain of Babesia. Note that the Abarca strain of Babesia will not be found in standard serologies unless we found using thick and thin smears. [facility]
--- NOTE | 2017-03-25 14:57 | PCM.PNMED ---
Subjective Date of Service Mar 25, 2017 Subjective She is doing better today. Her saturations are 92% room air. Still dyspnea with exertion but better. No cough. No fevers or chills. No chest pain. Minimal myalgias. She is urinating without difficulty. No abdominal pain or nausea. No overnight events noted Exam Vital Signs Vital Sign - Last Date Time Temp Pulse Resp B/P Pulse Ox O2 Delivery O2 Flow Rate FiO2 03/25/17 12:58 37.1 91 20 117/71 95 Nasal Cannula 3.00 Intake and Output 03/24/17 03/24/17 03/25/17 Cumulative From/Thru 15:00 23:00 07:00 03/22/17 19:07 - 03/25/17 06:09 Intake Total 673 ml 1669 ml 575 ml 6720 ml Output Total 1150 ml 1850 ml 4900 ml Balance -477 ml -181 ml 575 ml 1820 ml Intake Oral 673 ml 1280 ml 400 ml 3653 ml IV Total 389 ml 175 ml 3067 ml Output Urine Total 1150 ml 1850 ml 4900 ml # Bowel Movements 0 Exam Alert and oriented -3, no distress. Fluent speech Anicteric sclera. Lungs are clear with normal rate and effort Heart is regular without murmur gallop or rub Abdomen soft nontender, flat Extremities are free of edema. Skin is free of rash or lesions. IVs and Medications Medications Reviewed: Medications were reviewed in detail Lab and Diagnostics Result Diagram: 03/25/17 0235 03/25/17 0235 X-Rays, CTs and MRIs Chest x-ray on 03/22/2017: IMPRESSION: 1. New bilateral reticular interstitial opacities suspicious for atypical infection given the history. However, the differential also includes inflammatory interstitial lung diseases or inhalational exposures among other etiologies. Recommend correlation clinically and if indicated further evaluation may be obtained with a high-resolution CT. Dictated by: Abisai Wong M.D. on 03/22/2017 at 20:04 Assessment & Plan #. Atypical Pneumonia, improving. The patient is being treated for a multitude of atypical infections including pneumonia as well as tickborne illnesses with IV ceftriaxone and doxycycline. She does appear to be slowly improving in terms of her oxygen requirement and does not appear to be more ill. She still has hantavirus serologies pending. The patient has a differential that includes tickborne disease (HGA). She has no evidence of shock or profound hypoxia. No evidence of bleeding. This point we will continue her current treatment. Serologies are sent and pending. #. Acute respiratory failure with hypoxia, new. This is improving. Her saturations are 92% on room air today. #. Volume depletion, present on admission, resolved. -Likely secondary to infectious cause such as atypical pneumonia. -NS at 60 ml/hr. this will be discontinued #. Acute diarrhea, present on admission, intermittently active. -Several episodes of diarrhea over last 24 hours without blood. Recently was drinking out of well with what appeared to be contaminated water with red residue. -PCR stool panel pending. #. Thrombocytopenia, present on admission, improving.: -Platelets on admission 50. -Likely secondary to acute viral or bacterial infection. #. Hypovolemic hyponatremia, present on admission, and still active. -Sodium 127 on admit. Decreased fluid intake due to nausea. -NS at 60ml/hr. She may require more in depth workup if this continues to deteriorate. #. Elevated glucose, present on admission, improving. -On admit glucose is 131. -A1c ordered. #. Elevated transaminases, present on admission, ongoing and stable. Very likely related to her primary infection. AST 88, ALT 49. Lactate dehydrogenase on admit 490. Differential includes: infectious including hepatitis, toxin, alcoholism (she denies drinking), thyroid disorders, malignancy. -Consider ultrasound of abdomen in morning. -Hepatitis panel pending. SCD"s for DVT prophylaxis. Patient is admitted under inpatient status with expected length of stay greater than 2 midnights due to severity of presenting symptoms, risk of adverse event, and complexity of treatment plan. Resuscitation Status: CPR: Attempt Resuscitation Discharge in 2-3 days depending on degree of oxygen requirement with her hypoxia. Resuscitation Status: CPR: Attempt Resuscitation Hosea Brady MD Mar 25, 2017 14:57
[2017-03-25] MEDS: cefTRIAXone Inj 2,000 MG in Dextrose 5% Minibag Plus 50 ML IV SCH (15:27)
--- NOTE | 2017-03-25 17:56 | DRSVH ---
[facility] [address] [place] [place] [address] Echocardiogram Report Name: PATITO ANDERSON LStudy Valdemar e: 03/25/2017 Height: 66 in Hospital Exam Location: [facility] Weight: 133 lb Gender: Female BSA: 1.7 m2 : 1965 Age: 51 yrs BP: 108/72 mmHg Reason For Study: Pericarditis Ordering Physician: HOSPITALIST SHAWNHPerformed By: Jeff Blancas Referring Physician: AXEL MARADIAGA Interpretation Summary The left ventricle is normal in size, wall thickness, and systolic function without any focal wall motion abnormalities. The ejection fraction is estimated to be 60-65%. The right ventricle is normal in size and function. Valvular structure and function are within normal limits. There is a trace loculated pericardial effusion. There are no echocardiographic indications of cardiac tamponade. There are moderate-sized bilateral pleural effusions noted. No previous study for comparison. Procedure: A two-dimensional transthoracic echocardiogram with color flow and Doppler was performed. The study quality was technically good. There is no prior echocardiogram noted for this patient. The patient was in normal sinus rhythm during the exam. Left Ventricle: The left ventricle is normal in size, wall thickness, and systolic function without any focal wall motion abnormalities. The ejection fraction is estimated to be 60-65%. Assessment of diastolic parameters indicates normal left ventricular diastolic function and normal filling pressures. Right Ventricle: The right ventricle is normal in size and function. Atria: Both atria are normal in size. The interatrial septum is intact with no evidence for an atrial septal defect. Mitral Valve: The mitral valve is normal in structure and function. There is no mitral regurgitation noted. Aortic Valve: The aortic valve is trileaflet. The aortic valve opens well. No aortic regurgitation is present. Tricuspid Valve: The tricuspid valve is normal in structure and function. No tricuspid regurgitation. Pulmonic Valve: The pulmonic valve is normal in structure and function. There is trace pulmonic regurgitation. Great Vessels: The aortic root is normal size. The dimensions of the ascending aorta are normal. The pulmonary artery is normal size. The IVC is of normal diameter and collapses greater than 50% with a sniff. This suggests a low right atrial pressure of 3 mm Hg. Pericardium/ Pleura There is a trace loculated pericardial effusion. There are no echocardiographic indications of cardiac tamponade. There are moderate -sized bilateral pleural effusions noted. MMode/2D Measurements & Calculations LVIDd: 4.2 cm RA long axis: 3.7 cm LVOT diam: 2.0 cm LVIDs: 3.2 cmLA A2 area: 16.5 cm Ao root diam FS: 23.9 % LA A4 area: 17.2 cm RA area: 11.5 cm EPSS: 0.32 cmLA length (vol) RA vol: 30.2 ml asc Aorta Diam IVSd: 0.75 cm RA : 18.0 ml/m2 LVPWd LA vol: 46.3 ml Ao Arch Diam (Prox : 0.8cm LA vol index Trans): 2.5 cm IVC diam: 1.9 cm EDV(MOD-sp2) LV garcias. diameter/BSA LV sys. diameter/BSA TAPSE: 2.0 cm (cm/m^2): 2.5 (cm/m^2): 1.9 ESV(MOD-sp2) EF(MOD-sp2) Doppler Measurements & Calculations Ao V2 max: 135.2 cm/secMV E max alberto MV E/A: 1.1 PA V2 max Ao max P.3 mmHg : 72.0 cm/sec Med Peak E' Alberto : 81.5 cm/sec Ao mean P.2 mmHg MV A max alberto PA mean PG LVOT Max Alberto : 63.0 cm/sec E/E' med: 8.5 : 113.4 cm/sec Lat Peak E' Alberto PA Accel Time : 0.13 sec ARASELI(I,D): 2.6 cm E/E' lat: 7.1 sev ratio: 0.80 E/e' average: 7.8 MV dec time: 0.21 sec Ao V2 mean LV V1 max PG PA V2 mean : 97.5 cm/sec : 66.2 cm/sec Ao V2 VTI LV V1 VTI: 19.1 cm ARASELI(V,D): 2.7 cm2 ARASELI indexed to BSA (cm^2/m^2): 1.6 Reading Physician:05:56 PM
--- NOTE | 2017-03-25 18:37 | NUR ---
Oxygenation/Tele/Pain No reports of chest pain at rest, patient does report substernal positional chest pain (when bending down). Tele sinus tach 100s at rest, up to 140s with activity. Reports mild SOB at rest, reports significant SOB at fatigue with ambulation. SPO2 on RA 88%, 3LNC placed, SPO2 up to 94%. Reports rare productive cough, swallowed.Bowel tones hyperactive, denies abdominal pain/diarrhea/constipation. Reports mild nausea and decreased appetite. Voiding yellow urine without complication. Reported left shoulder pain, 400mg PO Ibuprofen given -- reported decrease in pain.
--- NOTE | 2017-03-25 21:10 | PROG NOTE ---
[address] [address] PROGRESS NOTE PATIENT: PATITO ANDERSON : 1965 MR#: [id number] ADMIT: 03/22/2017 JOB ID: [id number] DATE: 03/25/2017 PROBLEMS: 1. Abnormal chest x-ray. 2. Fever and cough. SUBJECTIVE: This morning was feeling a bit tired. Somewhat short of breath, and she thinks the shortness of breath was actually worsening. Essentially no sputum production. Poor appetite. This afternoon, she is feeling quite a bit better. Walked a bit around the room. Not wearing oxygen with an O2 sat running at 91% on room air. Still without much of an appetite, but is willing to countenance food. OBJECTIVE: Temperature 37.1, pulse mid 90s, respiratory rate 20, blood pressure 117/71, O2 sat on 3 L earlier today was 95%. Currently O2 sat on room air is 91%. General appearance: No acute distress. Looked a bit tired this morning. More animated this afternoon. This morning, she was speaking in phrases. This afternoon, speaking in full sentences. Lymph nodes are not palpable. Chest: Breath sounds are somewhat diminished bilaterally. Maybe a few crackles at the left base posteriorly. Remainder of lung romeo are clear. No use of accessory muscles. Heart: Regular rhythm. Heart tones normal. Abdomen is soft. Nontender. Bowel tones present. Liver and spleen not palpable. Extremities: No pretibial edema. LABORATORY DATA: Shows a white count of 12,300 with 56 polymorphonuclears, 24 lymphocytes, 14 monocytes, a few basophils. Yesterday, there were 34 bands. They seemed to have resolved today. Sodium 129, potassium 3.9, chloride 96, CO2 is 21, BUN 13, creatinine 0.6. Calcium is 7.6 with albumin of 2.4. Total bilirubin normal at 0.3. AST back to normal at 39, down from 72, ALT 21, down from 42, alkaline phos normal. Chest x-ray shows a small pleural effusion on the left. Right looks relatively clear. ASSESSMENT: Respiratory infection. Suspect Hantavirus. Hopefully, the patient is starting to go through the recovery phase. She has not been particularly ill. Will continue the doxycycline for the arthropod-related diseases. Want to keep the fluids to a minimum on this patient. Will give the fluids only for keeping the vein open for the IV antibiotics. Discussed the situation with the patient. Suggested that Hantavirus was the most likely diagnosis. She is quite bright and understands the implications of same. PLAN: 1. Continue doxycycline along with supportive care. 2. O2 by nasal prongs 2 L a minute. 3. Continue supportive care. 4. Chest x-ray in a.m.
--- NOTE | 2017-03-25 22:48 | NUR ---
Activity Pt up to the bathroom with mild shortness of breath. Her oxygen was 97% on 3L when she returned to bed. She states she overall feels "very improved" Will cont to monitor
[2017-03-26] VITALS (8 sets, daily range): BP systolic 106–135; BP diastolic 68–82; PULSE 68–105; RESP 16–18; O2SAT 94–98
[2017-03-26 02:46] LABS: BASOPHILS % (AUTO) 1.8 % (0-3); EOSINOPHILS % (AUTO) 2.7 % (0-5); MONOCYTES % (AUTO) 12.2 % (4-12); Mean Corpuscular Hemoglobin 30.6 pg (27.0-35.0); Mean Corpuscular Volume 88.2 fL (81-100); NEUTROPHILS % (AUTO) 45.3 % (40-74); Platelet Count 111 bil/L (150-400)
[2017-03-26 02:58] LABS: Magnesium 1.9 mg/dL (1.6-2.6); Phosphorus 2.9 mg/dL (2.5-4.9)
[2017-03-26] MEDS ORDERED: 0.9% Sodium Chloride 250 ML ONE (07:41)
[2017-03-26] MEDS: Doxycycline Inj 100 MG in Dextrose 5% Minibag Plus 100 ML IV SCH (08:08)
--- NOTE | 2017-03-26 08:20 | PROG NOTE ---
[address] [address] PROGRESS NOTE PATIENT: PATITO ANDERSON : 1965 MR#: [id number] ADMIT: 03/22/2017 JOB ID: [id number] DATE: 03/26/2017 REASON FOR FOLLOWUP: Bilateral interstitial additional pneumonia, possible Hantavirus. INTERVAL HISTORY: Overnight, the patient has improved considerably. She reports no fevers or chills, though she did have a bit of sweat last night. She has minimal headache, which is not fleeting and not severe. No sore throat. No longer has any significant cough, and her shortness of breath with exertion is much decreased. The pain she suffers when she bends over is also decreased by about 90%. She is having no nausea or vomiting, and about two loose bowel movements a day. No skin rash. PHYSICAL EXAMINATION: Reveals an afebrile woman, temp 36.8, pulse 95, respiratory rate 16, blood pressure 113/74, saturating well on 3 L. Eyes without conjunctivitis or scleral icterus. Oral cavity without thrush or hairy leukoplakia. Neck: Supple. Lungs: Quite clear to auscultation today, and most of the crackles that were present in the lower lung romeo are gone, with only a very rare crackle at this point. Cardiac tones: Regular rate and rhythm, without rub. Remainder of the exam unremarkable. No peripheral edema or skin rash is noted. LABORATORIES: Include a white count, which has dropped to 10,900; platelets are rising now, 111. Differential white count normalizing, though still at 12% monocytes. Creatinine 0.52. LFTs normal. Hantavirus serology still pending. Tularemia still pending. Histo serology is pending. Babesiosis smear is pending. Blood cultures negative. Respiratory viral PCR studies negative. IMAGING: Done yesterday reveals bilateral pulmonary infiltrates without much change. IMPRESSION: This patient is improved considerably over 24 hours ago. Not only is her shortness of breath and dyspnea on exertion improved, but so is her platelet count. This case continues to be most consistent with Hantavirus, though the differential diagnoses is broad, as was discussed in yesterday's progress note. RECOMMENDATIONS: 1. Will convert the doxycycline to oral, with a plan to finish seven days of therapy. 2. Will go ahead and discontinue the ceftriaxone as of tonight, as that will be a five day course of therapy, and I do not think we are treating any conventional bacteria. 3. We await the many pending serologies and cultures. 4. This case discussed at the bedside with the ICU attending.
--- NOTE | 2017-03-26 08:37 | PROG NOTE ---
[address] [address] PROGRESS NOTE PATIENT: PATITO ANDERSON : 1965 MR#: [id number] ADMIT: 03/22/2017 JOB ID: [id number] PULMONARY FOLLOWUP NOTE: DATE: 03/26/2017 PROBLEMS: 1. Abnormal chest x-ray. 2. Fever and nonproductive cough. SUBJECTIVE: Feeling better this morning. Is actually able to walk around the room to some extent. Slept fairly well. The chest heaviness provoked by leaning forward is pretty much gone. No headache or rash. No nausea or vomiting. Some loose stool; though, having two bowel movements a day. No abdominal pain. Appetite still rather marginal, but improving. OBJECTIVE: Temperature 36.4 with T-max being 37, pulse mid 90s, respiratory rate 16 to 20, blood pressure 106/73, O2 sat on 3 L OxyMask is 94 on 4 L nasal cannula is 98%. General appearance: More comfortable appearing. Speaking in full sentences. Speaking easily. Eyes: Conjunctivae are pink. Throat: Normal. No evidence of Serina. Chest: Somewhat diminished at the left base. Some mild dullness to percussion. No crackles or rubs. Heart: Regular rhythm. Heart tones normal. Abdomen: Soft. Nondistended. Nontender. Bowel tones are present. Extremities: No pretibial edema. LABORATORY DATA: Shows a white count of 10,900 with 45 polys, no bands, 37 lymphs, 12 monocytes. Hemoglobin 12.7, down 2 g in the past 24 hours. Platelet count rising at 111,000. Sodium 137, potassium 3.6, chloride 105, CO2 is 23, BUN 13, creatinine 0.5, lactic acid is 0.9. Calcium 7.8. Phosphorus 2.9. Magnesium 1.9. Total bilirubin 0.3. AST 44. ALT 25. Alk phos 38. Total protein 4.5 and albumin of 2.4. Serology is still pending. Chest x-ray shows no particular change with bibasilar airspace opacity, left greater than right. ASSESSMENT: Abnormal chest x-ray. Clinically doing quite a bit better. Her oxygenation is improving. Less shortness of breath with the patient currently speaking in full sentences and able to walk short distances. Will continue to restrict fluid. Antibiotics as per Infectious Disease is planning on discontinuing some of the antibiotics and making the others oral. PLAN: 1. Consider discontinuing cardiac telemetry. 2. Antibiotics as per ID. 3. Continue to restrict IV fluids. 4. Encourage ambulation and nutrition.
--- NOTE | 2017-03-26 11:44 | NUR ---
NUTRITION ASSESSMENT: ASSESS: Pt is a 51yo F admitted for bilateral interstitial pneumonia, possible Hantavirus. She reported that her appetite has been minimal over the last week but today she is feeling much better. She typically has a very healthy diet and she reported that the hospital food is a bit of an adjustment. She reported that now that her appetite is returning she is not interested in trying Ensure. She would rather try to eat her meals. Pt does not report any significant wt loss. PMHX: Depression LABS: Reviewed. Wash Operator .52, Glu 128, Ca 7.8, Alb 2.4 MEDS: Reviewed. GI: diarrhea related to antibiotics SKIN: no issues CURRENT WTS: 57.6kg, BMI 20.5kg/m2 DIET: General, PO 25-75% EST. NEEDS: Kcals: 1440-1730kcal/day (25-30kcal/kg) Pro: 70-85g/day (1.2-1.5g/kg) NUTRITION DIAGNOSIS: 1.) Inadequate PO intake related to acute illness as evidence by PO 25-75% during admit and reported poor PO intake prior to admit. NUTRITION INTERVENTION: 1.) Discussed eating smaller, more frequent meals while she is getting her appetite back and making sure that she gets enough protein. Pt reported that she likes plain yogurt and raw almonds (which are not available at the hospital) so encouraged pt to have friends/family bring in food that she prefers 2.) Pt has been experiencing increased diarrhea from the antibiotics so discussed eating low fiber foods that will not exacerbate the diarrhea (BRAT diet) and having family bring in the yogurt that she likes for probiotics & gut health. MONITOR / EVAL: PO, wt, GI, labs, POC, nutrition status. Will continue to monitor per moderate nutrition risk guidelines
--- NOTE | 2017-03-26 11:58 | DRSVH ---
PROCEDURE: X-RAY CHEST ONE VIEW, PORTABLE ([id number]) INDICATIONS: pneumonia, suspect Hanta virus TECHNIQUE: One view of the chest was acquired. COMPARISON: [facility], CR, XR CHEST 1VW (PORTABLE), 03/24/2017, 8:23. [facility], CR, XR CHEST 2VW, 03/22/2017, 19:54. [facility], CR, XR CHEST 1VW (PORTABLE), 03/25, 5:52. FINDINGS: Surgical changes and devices: None. Lungs and pleura: Small pleural effusions are present and persistent bibasilar airspace opacities lef t greater than right. No pneumothorax. Mediastinum: Mediastinal contours appear normal. Heart size is normal. Bones and chest wall: No suspicious bony lesions. Overlying soft tissues appear unremarkable. IMPRESSION: Small basilar pleural effusions and persistent airspace opacities not significantly merida ed suggesting bilateral pneumonia. Dictated by: Jethro Olivia A Interpreted: Bradford Sweeney MD on 03/26/2017 at 8:39 Approved by: Bradford Sweeney M.D. on 03/26/2017 at 11:56
--- NOTE | 2017-03-26 14:40 | PCM.PNMED ---
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 She reports moderate improvement today. Remains severely dyspneic with activity. No orthopnea or PND. No productive cough. Exam Vital Signs Vital Sign - Last Date Time Temp Pulse Resp B/P Pulse Ox O2 Delivery O2 Flow Rate FiO2 03/26/17 13:28 36.5 68 18 107/68 97 Room Air 03/26/17 07:52 4.00 Intake and Output 03/25/17 03/25/17 03/26/17 Cumulative From/Thru 15:00 23:00 07:00 03/22/17 19:07 - 03/26/17 06:39 Intake Total 1318 ml 300 ml 8338 ml Output Total 700 ml 5600 ml Balance 618 ml 300 ml 2738 ml Intake Oral 1050 ml 300 ml 5003 ml IV Total 268 ml 3335 ml Output Urine Total 700 ml 5600 ml # Voids 4 4 # Bowel Movements 1 1 Exam General: A 50-appearing, no acute distress HEENT: sclerae anicteric, oral mucosa moist Neck: no JVD Chest: clear to auscultation, no rales or wheezes Cardiac: S1S2, no murmur Abdomen: BS normal, non-tender Extremities: No edema Neuro: A&O, cranial nerves symmetric, motor strength 5/5, coordination normal IVs and Medications Medications Reviewed: Medications were reviewed in detail Lab and Diagnostics Result Diagram: 03/26/17 0230 03/26/17 0230 X-Rays, CTs and MRIs Chest x-ray on 03/22/2017: IMPRESSION: 1. New bilateral reticular interstitial opacities suspicious for atypical infection given the history. However, the differential also includes inflammatory interstitial lung diseases or inhalational exposures among other etiologies. Recommend correlation clinically and if indicated further evaluation may be obtained with a high-resolution CT. Dictated by: Abisai Wong M.D. on 03/22/2017 at 20:04 Assessment & Plan #. Atypical Pneumonia, improving. The patient is being treated for a multitude of atypical infections including pneumonia as well as tickborne illnesses. Leading diagnosis hantavirus, and granulomatous anaplasmosis. - Completed 5 day course of IV ceftriaxone - Continue with oral doxycycline. - hantavirus serologies pending. #. Acute respiratory failure with hypoxia, new. This is improving. Oxygenation relatively normal at rest. - Road test oxygen stability with activity - Assess needs for home O2 #. Volume depletion, present on admission, resolved. #. Acute diarrhea, present on admission, intermittently active. Noted after initiation of antibiotics initially she was constipated. - No clinical signs of pathological diarrhea #. Thrombocytopenia, present on admission, improving.Platelets on admission 50. Likely secondary to acute viral or bacterial infection. - Continue to monitor #. Hypovolemic hyponatremia, present on admission, and still active. Sodium 127 on admit. Attributed to decreased fluid intake due to nausea. - Resolved, on oral hydration #. Elevated glucose, present on admission, improving. - Resolved #. Elevated transaminases, present on admission, ongoing and stable. Very likely related to her primary infection. AST 88, ALT 49. Lactate dehydrogenase on admit 490. - Resolved SCD"s for DVT prophylaxis. Patient is admitted under inpatient status with expected length of stay greater than 2 midnights due to severity of presenting symptoms, risk of adverse event, and complexity of treatment plan. Resuscitation Status: CPR: Attempt Resuscitation Discharge in 1 days depending on degree of oxygen requirement with her hypoxia. Resuscitation Status: CPR: Attempt Resuscitation Time spent 35 minutes Dustin Davis MD Mar 26, 2017 14:40
[2017-03-26] MEDS: cefTRIAXone Inj 2,000 MG in Dextrose 5% Minibag Plus 50 ML IV SCH (15:35)
--- NOTE | 2017-03-26 16:21 | NUR ---
Social Work Note: Continued Discharge Planning Data& Assessment: Per MD pt is not medically ready for discharge at this time. Pt is still weaning off of oxygen. SW met with pt and pt sister at bedside to check in and assess for any unmet needs. Pt confirmed goal to return home when medically ready via POV. Pt explained she has a lot of local friends that she could stay with prior to returning home in order to recover from this hospitalization further. Pt will be transferred from IV to P.O antibiotics. Pt and pt sister deny any needs at this time. SW to continue to follow for MD orders and new pt needs. Plan: Anticipated discharge home via POV when medically ready. Pt and pt sister deny any needs at this time. SW to continue to follow for MD orders and new pt needs. AMINTA Padron
--- NOTE | 2017-03-26 16:45 | NUR ---
Multidisciplinary Communication [id number] - Discussed her care with Dr. Davis and the rest of the multidisciplinary care team during morning rounds. Dr. Davis said to discontinue telemetry and try to ween her off of her O2 to room air. [id number] - Noted that she did not have any DVT Prophylaxis medications ordered and notified Dr. Davis. He said that due to her young age and her moving around so much today to not worry about ordering any medications for tonight. Care continues.
--- NOTE | 2017-03-27 04:49 | NUR ---
Respiratory: Sp02 greater then 92% overnight on RA. Pt states she still experiences some Shortness of breath with activity- however states it is greatly improved. Sats checked after pt walking around, tidying up room and she was 93% on RA. No c/o pain. care ongoing.
[2017-03-27 07:50] VITALS: BP 129/91; PULSE 103; RESP 18; O2SAT 96
--- NOTE | 2017-03-27 10:18 | PROG NOTE ---
[address] [address] PROGRESS NOTE PATIENT: PATITO ANDERSON : 1965 MR#: [id number] ADMIT: 03/22/2017 JOB ID: [id number] DATE: 03/27/2017 REASON FOR FOLLOWUP: Bilateral pulmonary infiltrates, possible Hantavirus. INTERVAL HISTORY: The patient reports that overnight she has improved literally hour by hour. At this point, she is rapidly approaching her normal state of health. She denies absolutely any cough, shortness of breath, chest pain or untoward symptoms. PHYSICAL EXAMINATION: Reveals an afebrile, completely different-appearing woman, who now is stylishly dressed and appears basically healthy. Her temperature is 36.8. She has been afebrile now for many days. Pulse is approximately 100, respiratory rate 18, nonlabored, blood pressure 129/91. She is saturating well on room air. Oral cavity negative. Mental status normal. Lungs completely clear to auscultation posteriorly. No skin rash noted. LABORATORIES: Include white count yesterday 10,900, with platelets up to 111. Creatinine is 0.52. LFTs are normal. Albumin 2.4. Serologic studies are all still pending including tularemia, Fungitell, Hantavirus serologies, histo urine antigen and others. Micro-garcia, we continue to have negative blood cultures, and Babesiosis smears are pending. Last chest x-ray was done yesterday, showed small bilateral pleural effusions and bilateral infiltrates persisting. IMPRESSION: This patient is basically back to normal at this point, which is quite remarkable considering how ill she was just a few days ago. At this point, I think the patient is probably ready for discharge and I have discussed this case in person this morning with Dr. Jethro Davis. The probable diagnosis here remains Hantavirus, though it is unproven as we await our serologies. RECOMMENDATIONS: 1. I would continue doxycycline for about two more days to finish a week of therapy. 2. The ceftriaxone as already been stopped. 3. The patient is welcome to see me in the clinic on any coming Saturday, and I gave her my clinic number. Alternatively, if she is doing very well, she can just call me and let me know she is doing well, and I will call give her the results of all those serologies at the time of that phone call. 4. I have provided her with my cell phone number which she can call at any time should she deteriorate or have additional questions about her situation. ID will be signing off at this time.
--- NOTE | 2017-03-27 10:34 | NUR ---
Respiratory O2 sats 94 to 98% post ambulation around unit. pt denies SOB. Addendum: 03/27/17 at 1051 by STEPHANIE BATES RN notified at [phone]
[2017-03-27] MEDS ORDERED: DOXY100T2 PO (10:40)
--- NOTE | 2017-03-27 10:47 | PCM.DIMED ---
Discharge Instructions Date of Service Mar 27, 2017 Dates of Hospitalization Mar 22, 2017 at 21:57 Discharge Diagnosis Discharge Diagnosis Atypical pneumonia Acute respiratory failure with hypoxia Thrombocytopenia Hyponatremia Medication Instructions Additional med instructions He should continue doxycycline twice per day to finish the last dose on . This prescription has been transmitted to [facility] [place]. Diet Discharge Diet: No restrictions Activity Discharge Activity: Limited until seen by PCP Call your provider Call your provider for: Fever or Chills, Shortness of breath Patient Instructions Patient Instructions You should expect that your exertion tolerance will be reduced for 1-2 weeks. You should not return to work until you are tolerating physical activities around the home without exercise limitation, preferably after seeing your primary care provider. Follow-up Provider: Dora Starks MD Follow-up with PCP in: 2 weeks (as needed) Provider: Domingo Wise MD Follow-up in: 1 week (contact infectious disease clinic for a follow-up appointment with Dr. Wise, to include check on remaining diagnostic tests.) Dustin Davis MD Mar 27, 2017 10:47
--- NOTE | 2017-03-27 11:43 | NUR ---
Discharge Pt discharged ambulatory with sister at 1143. No complaints or concerns. All discharge paperwork reviewed and pt verbalized understanding of new antibiotic and instructions for follow up/activity. All belongings with pt. No IV to dc on discharge.
--- NOTE | 2017-03-27 13:23 | NUR ---
Social Work Note: Discharge Data& Assessment: Per pt is medically ready to discharge home via POV. Sonia Monge is a 51 year old female admitted on 03/22/2017 for insterstial pneumonia. Per MD is medically improved, transferred from IV to P.O medications and has been weaned off of oxygen. Pt sister transporting pt home today. No other discharge needs identified. Plan: Per pt is medically ready to discharge home via POV with pt sister support. No other discharge needs identified. AMINTA Padron
--- NOTE | 2017-03-27 13:59 | PROG NOTE ---
[address] [address] PROGRESS NOTE PATIENT: PATITO ANDERSON : 1965 MR#: [id number] ADMIT: 03/22/2017 JOB ID: [id number] DATE: 03/27/2017. PULMONARY FOLLOWUP NOTE: PROBLEM: Pneumonia. SUBJECTIVE: None. Breathing comfortably. Walking easily. Appetite improving and eating well. Essentially no cough or sputum production. No chest pain. OBJECTIVE: Temperature 36.8, pulse 88, respiratory rate 18, blood pressure 129/91, O2 sat on room air is 96%. General appearance: No acute distress. Moving around the room easily. Speaking easily. Throat: No evidence of Serina. Chest: Somewhat diminished at the left base. Maybe a few crackles at the left base. No dullness to percussion. Heart: Regular rhythm. Heart tones normal. Abdomen: Soft. Bowel tones present. ASSESSMENT: Pneumonia. The patient is doing extremely well. Recovering very nicely. Will need to check her O2 requirements with exertion. Suspect she will not require supplemental oxygen given her current status. Working diagnosis remains Hantavirus. Following the typical reported course. ID followup has graciously already been arranged through Dr. Wise. I suspect she will not need any further interventions other than verification of the underlying diagnosis. PLAN: RT to check O2 sats with exertion and prescribe supplemental oxygen if needed. From my standpoint, she certainly can be discharged. She is doing exceedingly well. She does have tremendous support at home and that should not be an issue.
--- NOTE | 2017-03-28 16:07 | PCM.DC.MED ---
Discharge Summary Date of Service Mar 27, 2017 Dates of Hospitalization Date of Hospital Admission Mar 22, 2017 at 21:57 Date of Discharge: Mar 27, 2017 Providers: Admitting Physician: Carin Underwood DO Primary Care Physician: Dora Starks MD Attending Physician: Carin Underwood DO Diagnosis at Time of Discharge Diagnosis at Time of Discharge Atypical pneumonia Acute respiratory failure with hypoxia Thrombocytopenia Hyponatremia Consultations Infectious disease, Dr. Domingo Wise Pulmonology: Dr. Tre Sabillon, Dr. Michel Barrios . Procedures XRay, CTs & MRIs Chest x-ray on 03/22/2017: IMPRESSION: 1. New bilateral reticular interstitial opacities suspicious for atypical infection given the history. However, the differential also includes inflammatory interstitial lung diseases or inhalational exposures among other etiologies. Recommend correlation clinically and if indicated further evaluation may be obtained with a high-resolution CT. Dictated by: Abisai Wong M.D. on 03/22/2017 at 20:04 Cardiac Echo Impression Echocardiogram Report Name: PATITO ANDERSON Study Date: 03/25/2017 Interpretation Summary The left ventricle is normal in size, wall thickness, and systolic function without any focal wall motion abnormalities. The ejection fraction is estimated to be 60-65%. The right ventricle is normal in size and function. Valvular structure and function are within normal limits. There is a trace loculated pericardial effusion. There are no echocardiographic indications of cardiac tamponade. There are moderate-sized bilateral pleural effusions noted. No previous study for comparison. . Brief History History of Present Illness (per admission note): This is a 51-year-old female who presents today with profound fatigue, chills, and loss of appetite. The patient states that she usually lives a very active lifestyle. 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 Approximately 3 weeks ago she remembers cleaning out a large structure with pigeon feces and deer mouse feces and after this developed a cough. Approximately 5 days ago she began to have profound fatigue. She was driving home from [facility] and had to stop her car several times because of the fatigue and due to the fatigue has been laying in bed since the onset. Over the last several days she has developed diffuse muscle aches, chills, nausea without vomiting, and loss of appetite. 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 Today, the patient has a cough that is productive although she cannot describe the sputum. She also has developed loose bowel movements over the last 24 hours that she describes as soft and sometimes liquid and without blood. 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 She denies any shortness of breath , nasal congestion, abdominal pain, hematochezia, melena, headaches, visual changes, dysuria, hematuria, increased urinary frequency.. . Hospital Course #. Atypical Pneumonia, improving. The patient is being treated for a multitude of atypical infections including pneumonia as well as tickborne illnesses. Leading diagnosis hantavirus, and granulomatous anaplasmosis. Chest imaging was not consistent with acute lobar pneumonia or focal bacterial infection. - Completed 5 day course of IV ceftriaxone - Continue with oral doxycycline to finish on 03/28. - Hantavirus and other serologies pending. - Follow-up with Dr. Wise #. Acute respiratory failure with hypoxia, new. Acquired high-dose oxygen but subsequently recovered excellent oxygenation. - No need for oxygen with activity at time of discharge #. Volume depletion, present on admission, resolved. #. Acute diarrhea, present on admission, intermittently active. Noted after initiation of antibiotics initially she was constipated. - No clinical signs of pathological diarrhea #. Thrombocytopenia, present on admission, improving.Platelets on admission 50. Likely secondary to acute viral or bacterial infection. #. Hypovolemic hyponatremia, present on admission, and still active. Sodium 127 on admit. Attributed to decreased fluid intake due to nausea. - Resolved, on oral hydration #. Elevated glucose, present on admission, improving. - Resolved #. Elevated transaminases, present on admission, ongoing and stable. Very likely related to her primary infection. AST 88, ALT 49. Lactate dehydrogenase on admit 490. - Resolved S Exam Vital Signs (Last) Date Time Temp Pulse Resp B/P Pulse Ox O2 Delivery O2 Flow Rate FiO2 03/27/17 08:00 Supplement Oxygen 03/27/17 07:50 36.8 103 18 129/91 96 03/26/17 17:05 2.00 Exam General: Healthy, no acute distress HEENT: sclerae anicteric, oral mucosa moist Neck: no JVD Chest: clear to auscultation, no rales or wheezes Cardiac: S1S2, no murmur Abdomen: BS normal, non-tender Extremities: No edema Neuro: A&O, cranial nerves symmetric, motor strength 5/5, coordination normal Test 03/22/17 19:55 03/22/17 21:45 03/23/17 00:20 03/23/17 00:35 Lactate Dehydrogenase 490U/L (100-190) Troponin T < 0.010ug/L (0.0-0.011) HIV (1&2) Ag and Ab, 4th Generation Non reactive (Non Reactive) Hemoglobin A1c 5.6% (4.8-5.6) Cryptococcus Antigen Negative (Negative) Hepatitis A IgM Antibody Negative (Negative) Hepatitis B Surface Antigen Negative (Negative) Hepatitis B Core IgM Antibody Negative (Negative) Hepatitis C Antibody <0.1s/co ratio (0.0-0.9) Hepatitis C Comment Comment (.) Urine Color Yellow (YELLOW) Urine Appearance Clear (CLEAR,HAZY) Urine pH 6.0 (5.0-8.0) Urine Specific [place] 1.010 (1.003-1.035) Urine Protein Tracemg/dL (NEG,TRACE) Urine Glucose (UA) Negativemg/dL (NEGATIVE) Urine Ketones 15mg/dL (NEGATIVE) Urine Occult Blood Trace (NEGATIVE) Urine Nitrite Negative (NEGATIVE) Urine Bilirubin Negative (NEGATIVE) Urine Urobilinogen Normalmg/dL (NORMAL) Urine Leukocyte Esterase Negative (NEGATIVE) Urine RBC 0-2/hpf (0-2) Urine WBC 0-5/hpf (0-5) Urine Epithelial Cells Few/hpf (NONE-MOD) Urine Crystals None seen (NONE SEEN) Urine Bacteria Few/hpf (NONE-FEW) Urine Hyaline Casts None/lpf (NONE) Urine Granular Casts None seen (NONE SEEN) Urine Waxy Casts None seen (NONE SEEN) Urine Red Blood Cell Casts None seen (NONE SEEN) Urine White Blood Cell Casts None seen (NONE SEEN) Urine Mucus None seen (None Seen) Urine Trichomonas None seen (NONE SEEN) Urine Yeast None (NONE SEEN) Urinalysis Comment None Urine Culture Reflexed Not indicated Urine Legionella pneumophilia Ag Negative (Negative) Test 03/23/17 02:25 03/24/17 02:25 03/24/17 14:23 03/25/17 02:35 Erythrocyte Sedimentation Rate 2mm/hr (0-40) Band Neutrophils % 36% (1-5) Pro-B-Type Natriuretic Peptide 223.1pg/mL (0-249) Hematology Comments Rbc Procalcitonin 0.37ng/mL (0.00-0.08) Test 03/26/17 02:30 03/26/17 12:30 White Blood Count 10.9th/mm3 (3.8-10.1) Red Blood Count 4.15mil/mm3 (3.90-5.20) Hemoglobin 12.7g/dL (12.0-15.6) Hematocrit 36.6% (35.0-46.0) Mean Corpuscular Volume 88.2fL (81-100) Mean Corpuscular Hemoglobin 30.6pg (27.0-35.0) Mean Corpuscular Hemoglobin Concent 34.7% (32.0-37.0) Red Cell Distribution Width 13.3% (12.3-15.4) Platelet Count 111bil/L (150-400) Neutrophils (%) (Auto) 45.3% (40-74) Lymphocytes (%) (Auto) 37.1% (14-46) Monocytes (%) (Auto) 12.2% (4-12) Eosinophils (%) (Auto) 2.7% (0-5) Basophils (%) (Auto) 1.8% (0-3) Sodium Level 137mEq/L (134-144) Potassium Level 3.6mEq/L (3.5-5.2) Chloride Level 105mEq/L (97-108) Carbon Dioxide Level 23mmol/L (18-29) Blood Urea Nitrogen 13mg/dL (6-24) Creatinine 0.52mg/dL (0.57-1.00) Estimat Glomerular Filtration Rate 177mL/min (>59) Glucose Level 128mg/dL (60-99) Lactic Acid Level 0.9mmol/L (0.4-2.0) Calcium Level 7.8mg/dL (8.5-10.1) Phosphorus Level 2.9mg/dL (2.5-4.9) Magnesium Level 1.9mg/dL (1.6-2.6) Total Bilirubin 0.3mg/dL (0.0-1.2) Aspartate Amino Transf (AST/SGOT) 44U/L (0-50) Alanine Aminotransferase (ALT/SGPT) 25U/L (0-32) Alkaline Phosphatase 38U/L (25-150) Total Protein 4.5g/dL (6.4-8.4) Albumin 2.4g/dL (3.4-5.0) Hold Biggs Top Tube Received (Received) Serology: Legionella antigen negative Serology for tularemia, fungal, cryptococcus, histoplasmosis, hanta virus are pending Hepatitis and HIV negative Microbiology Results Respiratory PCR negative Bilateral areas smear negative Blood cultures 2 negative Pneumococcal antigen negative Discharge Medications Discharge Medications Doxycycline Hyclate (Doxycycline Hyclate) 100 Mg Tablet 100 MG PO BID Prescribed by: TL CROW MD Sertraline HCl (Sertraline) 20 Mg/1 Ml Oral.conc 100 MG PO QAM (Reported) As needed Trazodone (Trazodone) 50 Mg Tablet 50 MG PO HS PRN PRN Insomnia (Reported) Additional med instructions continue doxycycline twice per day to finish the last dose on 03/29/17. This prescription has been transmitted to [facility]. Followup Plan Discharge Diet: No restrictions Discharge Activity: Limited until seen by PCP Patient Instructions You should expect that your exertion tolerance will be reduced for 1-2 weeks. You should not return to work until you are tolerating physical activities around the home without exercise limitation, preferably after seeing your primary care provider. Follow-up Provider: Dora Starks MD Follow-up with PCP in: 2 weeks (as needed) Provider: Domingo Wise MD Follow-up in: 1 week (contact infectious disease clinic for a follow-up appointment with Dr. Wise, to include check on remaining diagnostic tests.) Time spent 35 minutes copies to: Dora Starks MD; Domingo Wise MD, Jeffrey W MD Mar 27, 2017 10:48
== END 2017-03-27 11:43 | disposition home or self-care (01) | DRG 193 ==
LOC: SED 18:59 → PCC 21:57
PROVIDERS: ADMIT Internal Medicine; ATTEND Internal Medicine
DX: J18.9 Pneumonia, unspecified organism (principal); J96.01 Acute respiratory failure with hypoxia; E87.1 Hypo-osmolality and hyponatremia; B33.4 Hantavirus (cardio)-pulmonary syndrome [HPS] [HCPS]; D47.3 Essential (hemorrhagic) thrombocythemia; F32.9 Major depressive disorder, single episode, unspecified; R74.0 Nonspecific elevation of levels of transaminase and lactic acid dehydrogenase [LDH]